=== PATIENT | female | born 2000 | race Two or more races ===

== ENCOUNTER → 2024-09-27 | Outpatient (CLI) | payer BC, SELFPAY ==
--- NOTE | 2024-09-27 15:00 | XR_ITS ---
Examination: Pelvic ultrasound, transabdominal, complete Technique: Transabdominal ultrasound of the pelvis performed using grayscale imaging Date and time of exam: September 27, 2024 1514 hours INDICATIONS: Irregular menses 11 years FINDINGS: Uterus 5.4 cm endometrial stripe 0.2 cm No uterine mass or intrauterine gestation Right ovary 3.8 cm arterial flow Left ovary 3.3 cm arterial flow IMPRESSION: Negative examination
== END | disposition home or self-care (01) ==
PROVIDERS: PCP Family Medicine; Referring Provider Nurse Practitioner Family; Visit Provider Nurse Practitioner Family
DX: N92.6 Irregular menstruation, unspecified (principal)
CPT/HCPCS: 76856

== ENCOUNTER → 2025-06-22 | Outpatient (CLI) | payer OTHER, SELFPAY ==
--- NOTE | 2025-06-22 13:09 | XR_ITS ---
EXAMINATION: PA lateral chest 2 views TECHNIQUE: Upright PA lateral chest 2 views Date and time: June 22, 2025, 1337 hours INDICATIONS: Anterior sternal swelling beginning 4 months ago. FINDINGS: No fracture or dislocation, sternum appears intact Normal heart size Lungs are clear IMPRESSION: Consider ultrasound soft tissue presternal as clinically warranted
== END | disposition home or self-care (01) ==
PROVIDERS: PCP Nurse Practitioner Family; Referring Provider Nurse Practitioner Family; Visit Provider Nurse Practitioner Family
DX: R22.2 Localized swelling, mass and lump, trunk (principal)
CPT/HCPCS: 71046